=== PATIENT | male | born 1985 | race Caucasian/White ===

== ENCOUNTER 2017-02-17 22:38 | Emergency (ER) | payer OTHER ==
[~2017-02-17] VITALS: Ht 177.8 cm; Wt 88.0 kg
[2017-02-17 23:25] VITALS: BP 138/91
[2017-02-17 23:33] VITALS: BP 138/91
--- NOTE | 2017-02-18 04:53 | Emergency Room Report ---
History of Present Illness General Chief Complaint: Pain Source: Patient Present Illness HPI The patient is a 31-year-old male who presented after increased pain to his right hand after slamming his finger in a car door. The patient reports being right-hand dominant. He reports having increased pain and swelling. The injury occurred 2 days ago. He denied other locations of pain. Allergies: Coded Allergies: Codfish (Verified Allergy, Unknown, 02/17/17) ERYTHROMYCIN BASE (Verified Adverse Reaction, Unknown, 02/17/17) PT STATES HE VOMITS Patient History Past Medical History: see triage record Reviewed Nursing Documentation: PMH: Agreed, PSxH: Agreed Nursing Documentation-PMH Past Medical History: No Stated History Review of Systems All Other Systems: negative except mentioned in HPI Physical Exam Vital Signs Date Time Temp Pulse Resp B/P Pulse Ox O2 Delivery O2 Flow Rate FiO2 02/17/17 22:47 98.2 81 16 138/91 100 Room Air General Appearance: well appearing, no apparent distress, alert, GCS 15 Head: normocephalic, atraumatic ENT: hearing grossly normal, normal voice Neck: full range of motion, supple Respiratory: normal inspection, no respiratory distress, speaking full sentences Cardiovascular #1: normal inspection Musculoskeletal: no calf tenderness Neurologic: normal inspection, alert, oriented x3, data analysis intern III-XII nml as tested, normal gait Psychiatric: mood/affect normal Skin: other - soft tissue swelling, subungual hematoma Medical Decision Making Diagnostic Impression: Primary Impression: Subungual hematoma ER Course Patient presented for extremity pain. Differential diagnosis included fracture , dislocation, sprain, contusion among other. I imaging studies were ordered due to patient's trauma. X-ray of the right hand 3 views interpreted by me showed normal bony alignment without evident fracture. Subungual hematoma was drained with a 18-gauge needle. Patient tolerated well. A sterile dressing was applied.The patient is advised to follow up with primary care doctor in 1- 2 days. Patient is advised to return if any worsening condition or if any changes in status that are concerning. Last Vital Signs Date Time Temp Pulse Resp B/P Pulse Ox O2 Delivery O2 Flow Rate FiO2 02/17/17 23:33 98.2 16 138/91 100 Room Air 02/17/17 22:47 81 Status: improved Disposition: HOME, SELF-CARE Condition: Stable Referrals: MICHAEL MIXON MD (PCP) Patient Instructions: Subungual Hematoma Nazario Gutierrez Feb 18, 2017 04:53
--- NOTE | 2017-02-18 11:44 | Diagnostic Imaging Report ---
Indication: pain Findings: 3 views of the right hand were obtained. Normal bony mineralization and alignment are demonstrated. No acute fractures, erosions, or periosteal reaction are seen. Soft tissues are unremarkable. Impression: Negative examination of the right hand.
== END 2017-02-17 23:33 | disposition home or self-care (01) ==
LOC: EMR 22:55
DX: S60.011A Contusion of right thumb without damage to nail, initial encounter (principal); W23.0XXA Caught, crushed, jammed, or pinched between moving objects, initial encounter; Y92.810 Car as the place of occurrence of the external cause
CPT/HCPCS: 10060